=== PATIENT | male | born 2000 | race Caucasian/White ===

== ENCOUNTER 2024-11-01 13:32 | Outpatient (CLI) | payer OTHER, SELFPAY ==
--- NOTE | ~2024-11-01 | XR_ITS ---
XR thoracic spine 3V 11/01/2024 13:47 Indication: Back pain. Procedure: 3 views thoracic spine Comparison: No prior studies for comparison. Findings: Vertebral body heights are maintained. No fracture, subluxation or dislocation. Pedicles in tact. No paraspinal soft tissue abnormality. No foreign bodies. Impression: 1: No significant abnormality of the thoracic spine. Reviewed, dictated and finalized at location A. Impression: 1: No significant abnormality of the thoracic spine.
--- NOTE | ~2024-11-01 | XR_ITS ---
XR lumbar spine 2-3V 11/01/2024 13:47 Indication: Low back pain Procedure: 3 views lumbar spine Comparison: No prior studies for comparison. Findings: No fracture, subluxation or dislocation. Vertebral body heights are maintained. No fracture , subluxation or dislocation. Pedicles intact. Sacral foramen are symmetric. Impression: 1: No significant abnormality of the lumbar spine. Reviewed, dictated and finalized at location A. Impression: 1: No significant abnormality of the lumbar spine.
--- OUTSIDE RECORDS SUMMARY | 2024-11-01 13:37 | XMS_ITS | Continuity of Care Document ---
Author Name [facility] Organization [facility] Care Team Providers Care Therapy Manager Name Role Phone [facility] Unavailable Unavailable Problems Combined list of problems from Department of Defense and Veterans Affairs facilities. It does not include entries that were removed or entered in error. Problem Status Onset Date Problem Type Date of Resolution Comments Source Encounter for other administrative examinations Active 06/16/2024 Diagnosis [facility]49C-ACH [facility] Encounter for other specified special examinations Active 06/07/2024 Diagnosis 0049C-ACH [facility] No Known Problems Active Condition 0049 A-ACH [facility] Medications Combined list of outpatient medications from Department of Defense and Veterans Affairs facilities.Medications provided include 1) outpatient medications from the last 15 months, and 2) patient-reported medications. Medication Details Route Status Patient Instructions Prescription Expires Prescription Number Last Dispense Date Ordering Provider Order Date Order Qty Source acetaminoph en 500 mg oral tablet 1 tab(s), Oral, every 6 hr, PRN pain or fever, Take 1 500mg tab orally every 6 horus for pain as needed. not to exceed 3000 mg/day, # 50 tab(s), 0 total refill(s ), Acute, 06/14/24 11:00:00 PM DISC PAD GRINDER, Pharmacy : [facility] Oral (given by mouth) [facility] ed 06/15/2024 5 2024 50.0 [facility]-A [facility] doxycycline hyclate 100 mg oral tablet 1 tab(s), Oral, Daily, # 270 tab(s), 0 total refill(s ), Acute, 04/29/24 11:00:00 PM DISC PAD GRINDER, Pharmacy : [facility] Oral (given by mouth) [facility] ed 04/30/2024 4 2024 270.0 0049A-A [facility] ibuprofen 600 mg oral tablet 1 tab(s), Oral, every 6 hr, Take 1 600 mg tab orally every 6 hours for pain as needed. not to exceed 3200 mg/day, # 40 tab(s), 0 total refill(s ), Acute, 06/14/24 11:00:00 PM DISC PAD GRINDER, Pharmacy : [facility] Oral (given by mouth) Complet ed 06/15/2024 5 2024 40.0 0049C-A [facility] naloxone 4 mg/0.1 mL nasal spray [2EA] See Instruct ions, Nostril- Both, # 2 EA, 0 total refill(s ), Soft Stop Nostri l-Both (into the nose) Ordered 5 2024 2.0 Ambulat ory Pharmac y oxyCODONE 5 mg oral tablet See Instruct ions, PRN pain, Take 1 5mg tab orally every night before bed for 5 days., # 5 tab(s), 0 total refill(s ), Acute, 06/11/24 11:00:00 PM DISC PAD GRINDER, Pharmacy : [facility] Complet ed 06/12/2024 5 2024 5.0 00[facility]C-A [facility] Allergies, Adverse Reactions, Alerts Combined list of allergies from Department of Defense and Veterans Affairs facilities. It does not include entries that were removed or entered in error. Substance Category Reaction Severity Reaction type Status Date Reported Comments Source No Known Allergies Drug allergy (disorder) active 12/21/2020 [facility] Immunizations Combined list of available immunizations from the Department of Defense and Veterans Affairs facilities. Immunization Series Date Given Administered By Site Reaction Lot Number CVX Code Drug Rn Community Health Status Comments Source typhoid vaccine, inactivated 2023 YI BRYANT Shoul erma, left (delt oid) [id number] sanofi pasteur complet ed typhoid vaccine, inactivat ed 04/30/23 Given 0049A-A [facility] hepatitis B vaccine, pediatric or pediatric/ado lescent dosage 3 2021 GWEN DYKES [id number] 08 SmithKline (SKB) complet ed hepatitis B vaccine, pediatric or pediatric /adolesce nt dosage DoD influenza, injectable, quadrivalent- pf 2020 zzLef t Arm [id number] 150 [facility] ed influenza , injectabl e, quadrival ent-pf 01/27/21 Given Ambulat ory Pharmac y hepatitis B pediatric/ado lescent 2020 zzLef t Arm [id number] 08 GlaxoSmithKli ne complet ed hepatitis B pediatric /adolesce nt 01/27/21 Given Ambulat ory Pharmac y hepatitis B vaccine, pediatric or pediatric/ado lescent dosage 2 2020 TYRONE ORTIZ [id number] 08 [facility] ([facility]) complet ed hepatitis B vaccine, pediatric or pediatric /adolesce nt dosage DoD Influenza, injectable, quadrivalent, preservative free 1 2020 TYRONE ORTIZ [id number] 150 [facility] ([facility]) complet ed Influenza , injectabl e, quadrival ent, preservat brooke free DoD COVID Vaccine Pfizer 2020 zzLef t Arm [id number] 208 PFIZER complet ed COVID Vaccine Pfizer 01/12/21 Given Ambulat ory Pharmac y SARS-COV-2 (COVID-19) vaccine, mRNA, spike protein, LNP, preservative free, 30 mcg/0.3mL dose 2 2020 [id number] Pfizer, Inc (PFR) complet ed SARS-COV- 2 (COVID-19 ) vaccine, mRNA, spike protein, LNP, preservat brooke free, 30 mcg/0.3mL dose DoD COVID Vaccine Pfizer 2020 zzRig ht Arm [id number] 208 PFIZER complet ed COVID Vaccine Pfizer 12/04/20 Given Ambulat ory Pharmac y hepatitis B pediatric/ado lescent 2020 zzLef t Arm [id number] 08 GlaxGradient XithKli ne complet ed hepatitis B pediatric /adolesce nt 12/04/20 Given Ambulat ory Pharmac y adenovirus vaccine, live 2020 [id number] 143 Teva Pharmaceutica ls complet ed adenoviru s vaccine, live 12/04/20 Given Ambulat ory Pharmac y poliovirus vaccine, inactivated 2020 zzRig ht Arm [id number] 10 [facility] ed polioviru s vaccine, inactivat ed 12/04/20 Given Ambulat ory Pharmac y meningococcal A,C,Y,W-135 (MCV4P) 2020 zzLef t Arm [id number] 114 sanofi pasteur complet ed meningoco ccal A,C,Y,W-1 35 (MCV4P) 12/04/20 Given Ambulat ory Pharmac y tetanus, diphtheria, acellular pertu is 2020 zJoselito ht Arm [id number] 115 WISHIKli ne complet ed tetanus, diphtheri a, acellular pertussis 12/04/20 Given Ambulat ory Pharmac y hepatitis B vaccine, pediatric or pediatric/ado lescent dosage 1 2020 PATRICK METZ [id number] 08 [facility] ([facility]) complet ed hepatitis B vaccine, pediatric or pediatric /adolesce nt dosage DoD poliovirus vaccine, inactivated 1 2020 PATRICK METZ [id number] 10 [facility] (SK) complet ed polioviru s vaccine, inactivat ed DoD meningococcal polysaccharid e (groups A, C, Y and W-135) diphtheria toxoid conjugate vaccine (MCV4P) 1 2020 PATRICK METZ [id number] 114 Sanofi Pasteur (PMC) complet ed meningoco ccal polysacch aride (groups A, C, Y and W-135) diphtheri a toxoid conjugate vaccine (MCV4P) DoD tetanus toxoid, reduced diphtheria toxoid, and acellular pertu is vaccine, adsorbed 1 2020 PATRICK METZ [id number] 115 [facility] ([facility]) complet ed tetanus toxoid, reduced diphtheri a toxoid, and acellular pertussis vaccine, adsorbed DoD Adenovirus, type 4 and type 7, live, oral 1 2020 PATRICK METZ [id number] 143 [facility] (BRR) complet ed Adenoviru s, type 4 and type 7, live, oral DoD SARS-COV-2 (COVID-19) vaccine, mRNA, spike protein, LNP, preservative free, 30 mcg/0.3mL dose 1 2020 PATRICK METZ [id number] 208 Konkura[employer] Inc (PFR) complet ed SARS-COV- 2 (COVID-19 ) vaccine, mRNA, spike protein, LNP, preservat brooke free, 30 mcg/0.3mL dose DoD measles, mumps and rubella virus vaccine 1 2020 UNK 03 Unknown (UNK) Not Given measles, mumps and rubella virus vaccine [facility] varicella virus vaccine 1 2020 UNK 21 Unknown (UNK) Not Given varicella virus vaccine [facility] hepatitis A vaccine, adult dosage 1 2020 UNK 52 Unknown (UNK) Not Given hepatitis A vaccine, adult dosage DoD Results Combined list of recent chemistry, hematology and other laboratory results from Department of Defense and Veterans Affairs, ranging from 15 months to all on record, depending upon the facility. Order Name Results Value Reference Range Date Interpretation Specimen Comments Source Urinalysi s UA Protein Negative 06/07 0049A-A [facility] Urinalysi s UA Ketones Negative 06/07 0049A-A [facility] Urinalysi s UA Spec Pollock 1.018 1.000 - 1.050 06/07 N 0049A-A [facility] Urinalysi s UA WBC 0-1 /HPF 0 - 1 06/07 N 0049A-A [facility] Urinalysi s UA Urobilinoge n Normal 06/07 0049A-A [facility] Urinalysi s UA Blood Negative 06/07 Interpretiv e Data: Normal 0-0.02 mg/dL Trace 0.03-0.05 mg/dL Small 0.06-0.19 mg/dL Moderate 0.20-0.99 mg/dL Large >1.0 mg/dL 0049A-A [facility] Urinalysi s UA Clarity Clear (06/07/24 8:32 AM) Clear 06/07 N 0049A-A [facility] Urinalysi s UA Nitrite Negative 06/07 0049A-A [facility] Urinalysi s UA Glucose Normal 06/07 0049A-A [facility] Urinalysi s UA pH 6.0 5.0 - 9.0 06/07 N [facility]49A-A [facility] Urinalysi s UA RBC 0-2 /HPF 0 - 2 06/07 N 0049A-A [facility] Urinalysi s UA Mucous Light 06/07 0049A-A [facility] Urinalysi s UA Bili Negative 06/07 Interpretiv e Data: Normal 0-0.4 mg/dL Trace 0.5-1.9 mg/dL Small 2.0-3.9 mg/dL Moderate 4.0->10 mg/dL 0049A-A [facility] Urinalysi s UA Epi Squam None 06/07 0049A-A [facility] Urinalysi s UA Leuk Esterase Negative Nina/uL Negative 06/07 N Interpretiv e Data: Trace 25 Nina/ L Small 75 Nina/ L Moderate 250 Nina/ L Large 500 Nina/ L [facility]49A-A [facility] Urinalysi s UA Color Light-Ye llow 06/07 [facility]49A-A [facility] Infectiou s Disease HIV-1/2 AG/AB 4G CDD LC NEGATIVE NEGATIVE 03/01 Result Comment: Performed At: 1 [facility] [address] [place] [id number] NIKKY MICHELE PHD Ph:[phone] 0049A-A [facility] Infectiou s Disease Source of Test.LC PostDepS torage ( 4 10:47 AM) 03/01 N 0049A-A [facility] Infectiou s Disease HIV-1/2 AG/AB 4G CDD LC NEGATIVE 12/17 Result Comment: Performed At: 1 [facility] [employer] [address] NIKKY MICHELE PHD Ph:[phone] 0049A-A [facility] Infectiou s Disease Source of Test.LC Gen Force Test (12/17/22 1:17 PM) 12/17 N 0049A-A [facility] Vital Signs Combined list of inpatient and outpatient Vital Signs from Department of Defense and Veterans Affairs, ranging from 12 months to all on record, depending upon the facility. Vital Sign Value Date Comments Source Peripheral Pulse Rate 84 bpm 06/16/2024 19:13:00 0049C-ACH [facility] Mean Arterial Pressure, Calc 95 mm[Hg] 06/16/2024 19:13:00 0049C-ACH [facility] Respiratory Rate 14 br/min 06/16/2024 19:13:00 0049C-ACH [facility] Systolic Blood Pressure 122 mm[Hg] 06/16/2024 19:13:00 0049C-ACH [facility] Diastolic Blood Pressure 82 mm[Hg] 06/16/2024 19:13:00 0049C-[facility] Temperature Oral 37.3 Nallely 06/16/2024 19:13:00 0049C-ACH [facility] Peripheral Pulse Rate 91 bpm 03/01/2024 14:56:00 0049A-[facility] Systolic Blood Pressure 121 mm[Hg] 03/01/2024 14:56:00 0049A-ACH [facility] Diastolic Blood Pressure 80 mm[Hg] 03/01/2024 14:56:00 0049A-[facility] Temperature Oral 37 Nallely 09/25/2021 19:24:00 0049A-ACH [facility] Respiratory Rate 15 br/min 09/25/2021 19:24:00 0049A-ACH [facility] Peripheral Pulse Rate 81 bpm 09/25/2021 19:24:00 0049A-ACH [facility] Systolic Blood Pressure 123 mm[Hg] 09/25/2021 19:24:00 0049A-[facility] Diastolic Blood Pressure 71 mm[Hg] 09/25/2021 19:24:00 0049A-ACH [facility] Systolic Blood Pressure 128 mm[Hg] 04/30/2023 13:14:00 0049A-[facility] Diastolic Blood Pressure 65 mm[Hg] 04/30/2023 13:14:00 0049A-[facility] Peripheral Pulse Rate 71 bpm 04/30/2023 13:14:00 0049A-ACH [facility] Peripheral Pulse Rate 89 bpm 11/15/2021 13:07:00 0049A-ACH [facility] Systolic Blood Pressure 126 mm[Hg] 11/15/2021 13:07:00 ALICIA Mercedes Diastolic Blood Pressure 78 mm[Hg] 11/15/2021 13:07:00 ALICIA Mercedes Encounters Combined list of: 1) Encounters from Department of Veterans Affairs facilities going backup to the last 18 months, not all VA inpatient encounters are included; 2) Encounters from the Department of Defense facilities going backup to 280 months. Location Location Details Encounter Type Encounter Number Reason For Visit Attending Provider ADM Date DC Date Status Disposition Source [facility](IEP Optometry ) OUTPATIENT [id number] IET Inproce prabhjot SEMAJ CALDERON Magy 11/30 Released w/o Limitations [facility](I EP Optomet ry) [facility](IEP Primary Care) OUTPATIENT [id number] Notes Entered by: LONI METZ 04 Dec 2020 0943 ------- ------- ------- ------- -- IET IMM PATRICK METZ 12/04 Released w/o Limitations [facility](I EP Primary Care) [facility](KANDICE C Pandemic Virus) TELE CONSULT [id number] Notes Entered by: CAMILLE CASEY 07 Dec 2020 1457 ------- ------- ------- ------- -- COVID KESHAV BALDWIN 12/[address] [facility] Pandemi c Virus) [facility](C Ambulator y) OUTPATIENT [id number] AGGIE JACOBO 12/21 Released w/o Limitations [facility](T Ambulat ory) [facility](KANDICE C Pandemic Virus) TELE CONSULT [id number] Notes Entered by: MARGIE MONTES 22 Dec 2020 1639 ------- ------- ------- ------- -- COVID 19 MARGIE MONTES 12/[address] [facility] Pandemi c Virus) [facility](KANDICE C Covid Vaccinati on) OUTPATIENT [id number] Notes Entered by: Ayaz GÓMEZ 12 Jan 2021 0941 ------- ------- ------- ------- -- DOSE 2 HANDYKAYLA LARIOSCODY Alcaraz 01/12 Released w/o Limitations [facility] Covid Vaccina tion) [facility] Primary Care) OUTPATIENT [id number] Notes Entered by: TYRONE ORTIZ 29 Jan 2021 0515 ------- ------- ------- ------- -- IET DEF TYRONE ORTIZ 01/29 Released w/o Limitations [facility] Primary Care) [place]ris [place]ac[place]([facility]) OUTPATIENT [id number] Notes Entered by: Kirsten MALDONADO 05 Jul 2021 0759 ------- ------- ------- ------- -- INPROCE RAJ JON 07/05 Released w/o Limitations [place]) OUTPATIENT [id number] Notes Entered by: GWEN DYKES 09 Aug 2021 1124 ------- ------- ------- ------- -- IMMS GWEN DYKES 08/09 Released w/o Limitations [place] 0049ALESSANDRO [facility] Out[facility] [id number] KRISHNA Curtis 06/07 Discharge Disposition: Home or Self Care 48C-Amrita Tarik laguerre 0049C-JADEN [facility] [id number] Encount er for other specifi ed special davida FRAGA 06/07 Discharge Disposition: Home or Self Care 48C[facility] 00[facility] [id number] [facility] 06/08 Discharge Disposition: Home or Self Care 9C-A [facility] 0049[facility] [id number] [facility] 06/14 Discharge Disposition: Home or Self Care [facility]A [facility] 00[facility] [id number] [facility] er for other adminis trative examhillary ALFONSO YESSICA 06/16 Discharge Disposition: Home or Self Care 48C-A [facility] Procedures Combined list of: 1) Procedures from Department of Veterans Affairs facilities going back up to thelast 18 months, not all VA non-surgical procedures are included; 2) All procedures from the Department of Defense facilities. Procedure Procedure Type Code Date Perfomer Comments [facility] e Screening Test Of Visual Acuity, Quantitative, Bilateral Screening Test Of Visual Acuity, Quantitative, Bilateral 93407 SEMAJ CALDERON [facility] Immunization Administration One Vaccine Immunization Administration One Vaccine 06252 PATRICK METZ [facility] Immunization Administration Each Additional Vaccine Immunization Administration Each Additional Vaccine 59633 PATRICK METZ Vaccines Viral Polio, Inactivated (Salk) Vaccines Viral Polio, Inactivated (Salk) 54097 PATRICK METZ Tdap Vaccine Tdap Vaccine 76758 PATRICK METZ Immunization Admin Intranasal / Oral Each Additional Vaccine Immunization Admin Intranasal / Oral Each Additional Vaccine 27606 PATRICK METZ Vaccines Adenovirus Type 4 Live, For Oral Use Vaccines Adenovirus Type 4 Live, For Oral Use 13369 PATRICK METZ Vaccines Adenovirus Type 7 Live, For Oral Use Vaccines Adenovirus Type 7 Live, For Oral Use 84787 PATRICK METZ A e ment & Intervention Blood Pre ure Measured Assessment & Intervention Blood Pressure Measured 2000F RAJ KERR Venipuncture Venipuncture 36107 RAJ KERR Hepatitis B Vaccine (Active); [place] To 11 Years Hepatitis B Vaccine (Active); To 11 Years 76805 GWEN DYKES Hep B, adolescent or pediatric (19yr and younger); Series #: 3; ; IM; Left Arm; Mfg: Qualys; Lot: [id number]; VIS given (Maribell: 01/26/2021 - Multiple). [facility] BLOOD PRESSURE MEASURED (CKD)(DM) [facility] COLLECTION OF VENOUS BLOOD BY VENIPUNCTURE [facility] INFLUENZA VIRUS VACCINE, QUADRIVALENT (IIV4), SPLIT VIRUS, PRESERVATIVE FREE, 0.5 ML DOSAGE, FOR INTRAMUSCULAR USE DoD IMMUNIZATION ADM,INTRAMUSCULAR INJ,SEVERE AC RESPIRATORY SYNDROME CORONAVIR 2 (SARSCOV-2) (CORONAVIR DIS [COVID-19]) VACC,MRNALNP,SPIKE PROT,PRESRV FREE,30 MCG/0.3ML DOS,DILUENT RECONSTITUT;2ND DOSE DoD IMMUNIZATION ADM,INTRAMUSCULAR INJ,SEVERE AC RESPIRATORY SYNDROME CORONAVIR 2 (SARSCOV-2) (CORONAVIR DIS [COVID-19]) VACC,MRNALNP,SPIKE PROT,PRESRV FREE,30 MCG/0.3ML DOS,DILUENT RECONSTITUT;1ST DOSE [facility] SCREENING TEST OF VISUAL ACUITY, QUANTITATIVE, BILATERAL [facility] HEARING SERVICE, MISCELLANEOUS [facility] No data available for this section Ambulato ry Pharmacy Social History Combined list of available smoking, tobacco, and other social history from Department of Defense and Veterans Affairs facilities. Social History Type Response Date Comment Sourc e Sex Representation Male (finding) 07/24/2021 Un known Organization This section is an empty social history section. DoD Tobacco Never-cigarette user Cigarette use:. Never-other tobacco user (not cigarettes) Other Tobacco use:. Ambulatory Pharmacy Sexual Orientation Ambula tory Pharmacy Gender identity Ambulator y Pharmacy Assessment and Plan Combined list of future care activities from Department of Defense and Veterans Affairs facilities (e.g., assessment and plan notes, appointments, orders, and referrals). Additional future care activities may be listed in the Plan of Care section. Result Assessment and Plan Date Source Assessment and Plan Extracted from:Title : Office Clinic Note- ETS physical part II Author: ONEL WEINER PA Date: 06/16/24 1. E ncounter for other administrative examinations Pt presents to clinic for Phase II E TS Physical. States no new or significant complaints today. Patient found to be medically cleared. Forms filled out in MODS. Pt instructed to follow up with PCM for issues discussed during record review/PE. All questions addressed. CPT Onel Weiner PA-C [facility] [place], [place] Extracted from:Title: Eye Care -ETS Physical Author: MARIA R VIERA Date: 06/07/24 Encounter for other specified special examinations Extracted from:Title: Office Clinic Note - [facility] - DEPLOYABLE Author: HUSSAIN DE LA FUENTE PA-C Date: 04/30/23 1. 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 A vailable medical history within the last year was reviewed. Allergies: None Current medications: None Current profile status reviewed: No profile. Screened SI/HI: Denies HI/SI. Denies any lifetime self-harm. G6PD is Normal. TBI: Pt denies. SM is BEHAVIORALLY CLEARED. SM is [employer]. SM was found to be FULLY DEPLOYABLE IAW [id number] and MOD 3. Rx: Doxycycline 500mg QD for Malaria prevention. SM instructed to keep all scheduled medical appointments. SM instructed to report any changes in health status to PCM immediately so that deployability may be re-evaluated if indicated. SM verbalizes understanding of instructions. Hussain De La Fuente PA-C CPT, SP 3DSTB [employer]ician [employer] Inspection Assistant [place], [place] Ordered: doxycycline(doxycycline hyclate 100 mg oral tablet), 1 tab(s), Oral, Daily, # 270 tab(s), 0 total refill(s), Acute, 04/30/2024, 1 tab(s) Oral Daily, Pharmacy: [facility] Pre_DHA (DD Form 3281) Deployer: JUDY DHALIWAL Signed by: Hussain De La Fuente PA on Deployer reports most recent deployment was to [facility] and has deployed 0 times before in the past five years. VA Disability Information No VA Disability Information Available. Section 1: Pre-Deployment Self-Health Rating Deployer Comments: N/A Deployer Comments: N/A Deployer Comments: N/A Deployer Comments: N/A Deployer Comments: N/A Deployer Comments: N/A Was the [place]'s e-Profile and/or AHLTA history reviewed to determine the presence of mTBI/Concussion(s) to assessthe need for functional limitations or additional evaluation or treatment after this assessment?: Yes Section 2: Hearing and Tinnitus DQ9a: Bothered a little or a lot by noises in the ear: No Section 3: Alcohol Abuse Screening DQ10: AUDIT-C Screening Score: 3 Section 4: PTSD Screening DQ11: Deployer adam yes on two or more of questions 11a through 11d: No PCL-C Score: N/A Section 5: Depression Screening DQ12: Marked M ore than half the days or N early every day on 12a or 12b: No PHQ-8 Screening Score: N/A Section 6: Major Life Stressor DQ13: Major Life Stressor indicated: No Section 7: Suicide Risk Evaluation PQ7a: Bothered by suicidal thoughts or hurting yourself in the past month: No PQ8: Violence/harm risk evaluation. PQ8a: Ask, 'Over the past month have you had thoughts or concerns that you might hurt or lose control with someone?': No PQ9: Medical History Review if available, hard copy and/or electronic health records (including [id number] and SF-600 entries, and most recent past deployment health assessments).: Completed PQ9b: Evidence of deployment limiting conditions or medications?: No PQ14: Medical assessment/disposition: Deployable PQ16: Supplemental services recommended / information provided Appointment Assistance: No Contract Support: No Community Service: No Sales Lead: No Health Education and Information: No Health Care Benefits and Resources Information: No In Transition: No Family Support: No One Source: No Provider: No [facility] or Community Clinic: No Vet Center: No Other: No Provider s Name: Hussain De La Fuente Provider s Title: [facility] Provider s Signature: Yes Provider s Date: Extracted from:Title: Clinic Note-PHA Author: KRISHNA BARON PA-C Date: 10/08/22 1. 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 deployable 2. E ncounter for screening for other disorder denies si/hi Extracted from:Title: Office Clinic Note pmb Author: NARENDRA DOSHI Date: 11/15/21 1. E XAM, FORMAL OCCUPATIONAL HEALTH PROGRAM INCLUDING HEARING CONSERVATION PROGRAM, PERIODIC FOR CONTINUED SURVEILLANCE FOR OCCUPATIONAL WORKPLACE EXPOSURE 2. H earing test normal 3. H ealth education given 11/01/2024 0049[facility] Mago Assessment and Plan Extracted from:Title : Office Clinic Note- ETS physical part II Author: ONEL WEINER PA Date: 06/16/24 1. E ncounter for other administrative examinations Pt presents to clinic for Phase II E TS Physical. States no new or significant complaints today. Patient found to be medically cleared. Forms filled out in MODS. Pt instructed to follow up with PCM for issues discussed during record review/PE. All questions addressed. CPT Onel Weiner PA-C [facility], [place], [place] Extracted from:Title: Eye Care -ETS Physical Author: MARIA R VIERA Date: 06/07/24 Encounter for other specified special examinations Extracted from:Title: Office Clinic Note - PreD[facility] - DEPLOYABLE Author: HUSSAIN DE LA FUENTE PA-C Date: 04/30/23 1. 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 A vailable medical history within the last year was reviewed. Allergies: None Current medications: None Current profile status reviewed: No profile. Screened SI/HI: Denies HI/SI. Denies any lifetime self-harm. G6PD is Normal. TBI: Pt denies. SM is BEHAVIORALLY CLEARED. SM is [employer]. SM was found to be FULLY DEPLOYABLE IAW [id number] and MOD 3. Rx: Doxycycline 500mg QD for Malaria prevention. SM instructed to keep all scheduled medical appointments. SM instructed to report any changes in health status to PCM immediately so that deployability may be re-evaluated if indicated. SM verbalizes understanding of instructions. Hussain De La Fuente PA-C CPT, SP [id number] [employer] [place], [place] Ordered: doxycycline(doxycycline hyclate 100 mg oral tablet), 1 tab(s), Oral, Daily, # 270 tab(s), 0 total refill(s), Acute, 04/30/2024, 1 tab(s) Oral Daily, Pharmacy: [facility] Pre_DHA (DD Form 7800) Deployer: ISRAJUDY Signed by: Hussain De La Fuente PA on Deployer reports most recent deployment was to [facility] and has deployed 0 times before in the past five years. VA Disability Information No VA Disability Information Available. Section 1: Pre-Deployment Self-Health Rating Deployer Comments: N/A Deployer Comments: N/A Deployer Comments: N/A Deployer Comments: N/A Deployer Comments: N/A Deployer Comments: N/A Was the [place]'s e-Profile and/or AHLTA history reviewed to determine the presence of mTBI/Concussion(s) to assessthe need for functional limitations or additional evaluation or treatment after this assessment?: Yes Section 2: Hearing and Tinnitus DQ9a: Bothered a little or a lot by noises in the ear: No Section 3: Alcohol Abuse Screening DQ10: AUDIT-C Screening Score: 3 Section 4: PTSD Screening DQ11: Deployer adam yes on two or more of questions 11a through 11d: No PCL-C Score: N/A Section 5: Depression Screening DQ12: Marked M ore than half the days or N early every day on 12a or 12b: No PHQ-8 Screening Score: N/A Section 6: Major Life Stressor DQ13: Major Life Stressor indicated: No Section 7: Suicide Risk Evaluation PQ7a: Bothered by suicidal thoughts or hurting yourself in the past month: No PQ8: Violence/harm risk evaluation. PQ8a: Ask, 'Over the past month have you had thoughts or concerns that you might hurt or lose control with someone?': No PQ9: Medical History Review if available, hard copy and/or electronic health records (including [id number] and SF-600 entries, and most recent past deployment health assessments).: Completed PQ9b: Evidence of deployment limiting conditions or medications?: No PQ14: Medical assessment/disposition: Deployable PQ16: Supplemental services recommended / information provided Appointment Assistance: No Contract Support: No Community Service: No Sales Lead: No Health Education and Information: No Health Care Benefits and Resources Information: No In Transition: No Family Support: No One Source: No Provider: [facility]: No Vet Center: No Other: No Provider s Name: MeriHussain Provider s Title: [facility] Provider s Signature: Yes Provider s Date: Extracted from:Title: Clinic Note-PHA Author: KRISHNA BARON PA-C Date: 10/08/22 1. 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 E ncounter for screening for other disorder denies si/hi Extracted from:Title: Office Clinic Note pmb Author: NARENDRA DOSHI Date: 11/15/21 1. E XAM, FORMAL OCCUPATIONAL HEALTH PROGRAM INCLUDING HEARING CONSERVATION PROGRAM, PERIODIC FOR CONTINUED SURVEILLANCE FOR OCCUPATIONAL WORKPLACE EXPOSURE 2. H earing test normal 3. H ealth education given 11/01/2024 [id number] Mercedes Functional Status Combined list of recent functional and cognitive assessments recorded at [facility] [employer] [facility] (VA).VA Functional [place] Measurement (FIM) Scale: 1 = Total Assistance (Subject = 0% +), 2 = Maximal Assistance (Subject = 25% +), 3 = Moderate Assistance (Subject = 50% +), 4 = Minimal Assistance (Subject = 75% +), 5 = Supervision, 6 = Modified [place] (Device), 7 = Complete [place] (Timely, Safely). Assessment Date/Time Source Assessment Type Assessment Skill Assessment Score Assessment Details No data available for this section
== END 2024-11-01 13:33 | disposition home or self-care (01) ==
LOC: ANHBWCIMG 13:34
PROVIDERS: PCP Nurse Practitioner Adult Health; Visit Provider Nurse Practitioner Adult Health
DX: M54.50 Low back pain, unspecified (principal)
CPT/HCPCS: 72072; 72100